=== PATIENT | female | born 2000 | race Caucasian/White ===

== ENCOUNTER 2023-06-28 23:04 | Emergency (ER) | payer OTHER, SELFPAY ==
--- NOTE | 2023-06-28 23:12 | ECG_ITS ---
Test Reason : CHEST PAIN Blood Pressure : / mmHG Vent. Rate : 073 BPM Atrial Rate : 073 BPM P-R Int : 160 ms QRS Dur : 072 ms QT Int : 386 ms P-R-T Axes : 048 057 055 degrees QTc Int : 425 ms Normal sinus rhythm with sinus arrhythmia Normal ECG No previous ECGs available Referred By: Generic ED Physician Electronically Signed By:PENNY WAKEFIELD
[2023-06-28 23:23] LABS: Hematocrit 38.2 % (37.0-47.0); Hemoglobin 12.7 g/dl (12.0-16.0); Mean Corpuscular HGB Conc 33.2 g/dl (31.0-35.0); Mean Corpuscular Volume 90.3 fL (80.0-98.0); Mean Platelet Volume 8.9 fL (9.4-12.3); Platelet Count 275 X10*3/uL (160-400); Red Blood Count 4.23 X10*6/uL (4.20-5.50); Red Cell Distribution Width 13.2 % (11.0-16.0); White Blood Count 7.9 X10*3/uL (4.8-10.8)
[2023-06-28 23:40] LABS: Alanine Aminotransferase 8 U/L (0-31); Albumin Level 4.2 g/dL (3.5-5.0); Alkaline Phosphatase 68 U/L (39-117); Anion Gap 10 (12-20); Aspartate Amino Transferase 13 U/L (5-31); Bilirubin Total 0.3 mg/dL (0.0-1.0); Blood Urea Nitrogen 18 mg/dL (9-16); Calcium 8.8 mg/dL (8.4-10.2); Carbon Dioxide 24 mmol/L (22-29); Chloride 107 mmol/L (96-108); Estimated Glomerular Filt Rate > 60; Glucose Random 120 mg/dL (60-115); Potassium 3.4 mmol/L (3.3-5.1); Sodium 138 mmol/L (135-145); Total Protein 7.3 g/dL (6.5-8.0)
[2023-06-28 23:48] LABS: Troponin-I High Sensitivity < 2.7 ng/L (<3.5-17.0)
[2023-06-28 23:51] VITALS: BP 119/73; PULSE 92; RESP 16; TEMP 36.7; O2SAT 98; BMI 27.4
--- NOTE | 2023-06-29 01:16 | ED.CHESTPAIN ---
HPI - Chest Pain General Chief Complaint: Chest Pain Stated Complaint: Chest Pain/ Heart Palpitation/ Finger numbness Time Seen by Provider: 06/29/23 01:16 Source: patient, RN notes reviewed and old records reviewed Mode of arrival: ambulatory History of Present Illness HPI narrative: 22-year-old female presents for evaluation of left-sided chest pain. patient reports that she has a known history of a ventricular septal defect that was diagnosed when she was 9 she has not followed up since sinus she has not had any issues she reports that she has had worsening pain over the last month or so. She has intermittent palpitations that seem to be worse at night and worse when she lies on her left side she is on oral contraception patient reports a family history of coronary artery disease she has no other medical history outside of the VSD currently she does not have any palpitations or chest pain her symptoms worsened at 10:00 p.m. today prompting her to present to the ER tonight Related Data Allergies Allergy/AdvReac Type Severity Reaction Status Date / Time No Known Allergies Allergy Verified 06/29/23 01:28 Review of Systems Constitutional: Constitutional: Denies chills and Denies fever(s) Cardiovascular: Cardiovascular: Reports chest pain, Reports rapid heart rate and Denies dyspnea Respiratory: Respiratory: Denies cough, Reports pain on inspiration and Denies dyspnea Gastrointestinal: Gastrointestinal: Denies abdominal pain, Denies nausea and Denies vomiting Musculoskeletal: Musculoskeletal: Denies back pain PMFSH Social History Social History Alcohol intake: never Smoked in Last 30 Days: No Use of substances other than those prescribed or required for medical reasons: No Advance Directives: No Advance Directives Information Provided: No Patient : No Physical Exam Vital Signs: Vital Signs: Last Vital Signs Temp 98.0 F 06/28/23 23:51 Pulse 92 06/28/23 23:51 Resp 16 06/28/23 23:51 BP 119/73 06/28/23 23:51 Pulse Ox 98 06/28/23 23:51 O2 Del Method Room Air 06/28/23 23:51 BMI result Body Mass Index 27.4 Const: General: healthy appearing, comfortable, no acute distress, alert and awake Nutritional Appearance: well nourished Orientation/consciousness: patient oriented x3 HEENT: Head: Yes normocephalic and Yes atraumatic Eyes: Eyelids: Yes eyelids normal Conjunctivae: conjunctivae normal Sclerae: sclerae normal Corneas: corneas normal Pupils: Equal, round and reactive pupils present EOM: EOMs intact bilaterally Neck: Neck: Yes full ROM Resp: Effort & Inspection: normal respiratory effort, able to speak in complete sentences and not labored Cardio: Rate: regular rate Rhythm: regular rhythm Heart sounds: Murmur heart sound present Skin: General skin exam: elasticity normal Neuro: General: patient oriented x3 Cranial nerves: Yes Equal, round and reactive pupils present and Yes Bilaterally intact EOM present Cognition (Neuro): normal cognition Medical Decision Making Medical Decision Making [facility] Narrative: 22-year-old female with past medical history significant for a VSD presents for evaluation of chest pain. Patient's pain is less likely to be ACS as she is young without any risk factors outside of family history. Initial troponin was negative. EKG is nonischemic. She cannot be ruled out for PE through PERC criteria as she is on hormonal therapy. Will get a D-dimer to rule this out although she is not hypoxic or tachypneic. The patient can be referred to Cardiology for evaluation and management of her known VSD Differential Diagnosis Differential Diagnoses: The differential diagnosis associated with the presentation includes chest pain Palpitations Anxiety GERD ACS PE Lab Data [facility] Lab Attestation statement: I reviewed the patient's lab results. no leukocytosis or anemia, normal platelet count. No significant electrolyte abnormalities. BUN is slightly elevated to 18 1 normal creatinine 0.79. Glucose elevated to 120 but is random. Troponin undetectable at less than 2.7 06/28/23 23:18 06/28/23 23:18 Labs: Lab Results 06/28/23 06/28/23 06/28/23 Range/Units 23:18 23:18 23:18 WBC 7.9 (4.8-10.8) X10*3/uL RBC 4.23 (4.20-5.50) X10*6/uL Hgb 12.7 (12.0-16.0) g/dl Hct 38.2 (37.0-47.0) % MCV 90.3 (80.0-98.0) fL MCH 30.0 (27.0-33.0) pg MCHC 33.2 (31.0-35.0) g/dl RDW 13.2 (11.0-16.0) % Plt Count 275 (160-400) X10*3/uL MPV 8.9 L (9.4-12.3) fL Absolute Nucleated RBC 0.000 (0.0-0.012) X10*3/uL Nucleated RBC % (auto) 0.0 (0.0-0.2) /100WBC D-Dimer High Sensitivty NG/ML Sodium 138 (135-145) mmol/L Potassium 3.4 (3.3-5.1) mmol/L Chloride 107 (96-108) mmol/L Carbon Dioxide 24 (22-29) mmol/L Anion Gap 10 L (12-20) BUN 18 H (9-16) mg/dL Creatinine 0.79 (0.5-1.4) mg/dL Estim Creat Clear Calc TNP Estimated GFR > 60 Random Glucose 120 H (60-115) mg/dL Calcium 8.8 (8.4-10.2) mg/dL Total Bilirubin 0.3 (0.0-1.0) mg/dL AST 13 (5-31) U/L ALT 8 (0-31) U/L Alkaline Phosphatase 68 (39-117) U/L Troponin I High Sens < 2.7 (<3.5-17.0) ng/L Total Protein 7.3 (6.5-8.0) g/dL Albumin 4.2 (3.5-5.0) g/dL 06/29/23 06/29/23 Range/Units 01:46 01:46 WBC (4.8-10.8) X10*3/uL RBC (4.20-5.50) X10*6/uL Hgb (12.0-16.0) g/dl Hct (37.0-47.0) % MCV (80.0-98.0) fL MCH (27.0-33.0) pg MCHC (31.0-35.0) g/dl RDW (11.0-16.0) % Plt Count (160-400) X10*3/uL MPV (9.4-12.3) fL Absolute Nucleated RBC (0.0-0.012) X10*3/uL Nucleated RBC % (auto) (0.0-0.2) /100WBC D-Dimer High Sensitivty < 150 NG/ML Sodium (135-145) mmol/L Potassium (3.3-5.1) mmol/L Chloride (96-108) mmol/L Carbon Dioxide (22-29) mmol/L Anion Gap (12-20) BUN (9-16) mg/dL Creatinine (0.5-1.4) mg/dL Estim Creat Clear Calc Estimated GFR Random Glucose (60-115) mg/dL Calcium (8.4-10.2) mg/dL Total Bilirubin (0.0-1.0) mg/dL AST (5-31) U/L ALT (0-31) U/L Alkaline Phosphatase (39-117) U/L Troponin I High Sens < 2.7 (<3.5-17.0) ng/L Total Protein (6.5-8.0) g/dL Albumin (3.5-5.0) g/dL Independent Interpretation I performed an independent interpretation of an: EKG Interpretation: normal sinus rhythm with a rate of 73 beats per minute. No ectopy, no ischemic changes Discharge Plan Discharge Clinical Impression: Chest pain, Heart palpitations Patient Disposition: Home, Self-Care Instructions: Chest Pain (ED) Additional Instructions: your workup in the emergency department today was reassuring. This includes your blood work, EKG and repeat blood work given your known ventricular septal defect, you may follow-up with Cardiology by calling the offices of Dr. Barrera you may benefit from an updated echocardiogram Referrals: Edward Barrera MD [Physician] - (palpitations, known VSD)
[2023-06-29 02:20] LABS: Troponin-I High Sensitivity < 2.7 ng/L (<3.5-17.0)
[2023-06-29 02:32] LABS: D Dimer High Sensitivity < 150 NG/ML
== END 2023-06-29 02:40 | disposition home or self-care (01) ==
PROVIDERS: Physician Assistant; Emergency Provider Emergency Medicine
DX: R07.9 Chest pain, unspecified (principal); R00.2 Palpitations
CPT/HCPCS: 36415; 80053; 84484; 85027; 85379; 93005; 99284

== ENCOUNTER 2023-12-12 09:50 | Outpatient (REF) | payer OTHER, SELFPAY ==
[2023-12-12 11:09] LABS: Hematocrit 40.7 % (37.0-47.0); Mean Corpuscular HGB Conc 34.4 g/dl (31.0-35.0); Mean Corpuscular Hemoglobin 31.3 pg (27.0-33.0); Mean Corpuscular Volume 91.1 fL (80.0-98.0); Platelet Count 296 X10*3/uL (160-400); Red Blood Count 4.47 X10*6/uL (4.20-5.50); Red Cell Distribution Width 12.7 % (11.0-16.0); White Blood Count 6.1 X10*3/uL (4.8-10.8)
[2023-12-12 12:58] LABS: Anion Gap 13 (12-20); Blood Urea Nitrogen 13 mg/dL (9-16); Calcium 9.8 mg/dL (8.4-10.2); Carbon Dioxide 25 mmol/L (22-29); Chloride 106 mmol/L (96-108); Estimated Glomerular Filt Rate > 60; Glucose Random 86 mg/dL (60-115); Magnesium 2.3 mg/dL (1.6-2.6); Potassium 4.2 mmol/L (3.3-5.1); Sodium 140 mmol/L (135-145)
[2023-12-12 13:05] LABS: TSH reflex Free T4 0.91 uIU/mL (0.32-4.0)
== END 2023-12-12 09:51 | disposition home or self-care (01) ==
LOC: HO.LAB 09:50
PROVIDERS: Visit Provider Internal Medicine Cardiovascular Disease
DX: R00.2 Palpitations (principal); Q21.0 Ventricular septal defect; Q25.42 Hypoplasia of aorta
CPT/HCPCS: 36415; 80048; 83735; 84443; 85027; 93005

== ENCOUNTER 2023-12-12 09:50 | Outpatient (AMB) | payer OTHER, SELFPAY ==
--- NOTE | 2023-12-12 09:51 | A.OFFVIS_ITS ---
Intake Vital Signs 12/12/23 09:53 Height 5 ft 2 in Weight 138 lb 14.259 oz BMI 25.4 BP 120/72 Blood Pressure Location Lt brachial Position Sitting Pulse 78 Intake Visit Reasons: [employer]ER/ PCP pending/ chest pain/palps/ ed 08 Intake Note: New patient born with a hole in her heart has hurt murmur last echo with when she was 7 recently having palpitations and chest pain at times Tax Manager Public Required: No Allergies No Known Allergies Allergy (Verified 06/29/23 01:28) Medication List - Last Reconciled 12/12/23 by Warren Dillard MD drospirenone (contraceptive) (Slynd) 1 tab PO DAILY HPI HPI Comments History of Present Illness Details Thank you for referring Darling in cardiology consultation today for symptoms of palpitations. 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 She is diagnosed with a VSD when she was very young and at age of 7 was told that VSD would potentially close by itself and was had no follow-up since then. However seems like the VSD was small at that time and hemodynamically not significant. Since then she has not had any further evaluation. As she got concerned as in summer she started having symptoms of palpitations. She feels this mostly at rest at nighttime when she is trying to relax and she would feel skipped heartbeats and or flutter in the chest. She is tried to take her own pulse but this is usually regular at that point in time. She since then had does episode for 2 months and then subsided. However for the last few months she has been having symptoms more frequently and happens on a daily basis. Symptoms are bothersome to her. Occasionally associated with chest pain. She exercises on a regular basis and has no exertional chest pain or shortness of breath. No symptoms of orthopnea, PND, leg edema. No prolonged palpitations or lightheadedness or syncope. She has not had any recent changes in her health. She denies any recent increased stress in her life. She denies any orse-vex-ndbfllr medications. Drinks 1-2 cups of caffeine on a daily basis and occasional alcohol but there is no correlation to her symptoms. [facility] Medical History (Updated 12/12/23 @ 10:27 by Warren Dillard MD) VSD (ventricular septal defect and aortic arch hypoplasia Family History (Updated 12/12/23 @ 10:02 by Judie Queen Imelda) Father No problems noted. Mother No problems noted. Maternal Grandmother HTN (hypertension) Social History (Updated 12/12/23 @ 10:03 by NELL Pickett) Alcohol intake: never Patient Tobacco Use Status: Never used Tobacco Review of Systems Const Denies chills, Denies daytime sleepiness, Denies fatigue, Denies fever(s), Denies frequent falls, Denies poor appetite, Denies snoring, Denies stops breathing during sleep, Denies weakness, Denies weight gain and Denies weight loss Eyes Denies loss of vision ENT Denies dizziness and Denies hearing loss Card Denies chest pain, Denies claudication, Denies leg edema, Denies lighthea dedness, Denies palpitations, Denies dyspnea, Denies dyspnea on exertion and Denies orthopnea Resp Denies cough, Denies excessive phlegm production, Denies dyspnea, Denies dyspnea on exertion, Denies snoring and Denies wheezing GI Denies abdominal pain, Denies hematochezia, Denies change in bowel habits, Denies nausea and Denies vomiting Denies urinary frequency and Denies dysuria Musc Denies arthralgias, Denies muscle weakness, Denies numbness and Denies other (frequent falls) Skin/Breast Denies nail changes and Denies rash Neuro Denies Abnormal speech present, Denies dizziness, Denies frequent falls, Denies loss of vision, Denies memory loss, Denies numbness and Denies weakness Psych Denies depression and Denies memory loss Endo Denies fatigue and Denies palpitations Domingo/Lymph Reports easy bruising and Reports other (anemia) Aller/Immun Denies wheezing Physical Exam Vital Signs: Last Vital Signs Pulse 78 12/12/23 09:53 BP 120/72 12/12/23 09:53 BMI result Body Mass Index 25.4 Const General: cooperative, comfortable, well developed, alert, awake and Physically active Nutritional Appearance: average body habitus Orientation/consciousness: patient oriented x3 Limitations: no limitations HEENT Head: Yes normocephalic and Yes atraumatic Neck Neck: Yes trachea midline, Yes supple and Yes no JVD Resp Effort & Inspection: normal respiratory effort Auscultation: clear to auscultation bilaterally Cardio Jugular venous distension: no JVD Palpation: normal PMI Rate: regular rate Rhythm: regular rhythm Heart sounds: S1 normal heart sound present, S2 normal heart sound present, no click, no gallops and Murmur heart sound present systolic holo, harsh and at the left sternal border GI Auscultation: normal bowel sounds Skin General skin exam: no rashes or lesions noted Neuro General: patient oriented x3 and no focal motor deficits Speech: No Abnormal speech present Extrem General: Yes no clubbing, cyanosis or edema Psych Appearance: grossly normal Office Procedures EKG Details: EKG shows normal sinus rhythm with sinus arrhythmia otherwise normal EKG [id number], Complete Assessment & Plan Assessment & Plan (1) Heart palpitations: Code(s): R00.2 - Palpitations Plan: Patient with symptoms of palpitation which are more bothersome and more persistent and present consistently in the past few months. From history appear to be isolated PVCs or may be PACs. This needs to be diagnosed. Will suggest a 3 day Holter monitor to further assess for the symptoms as well as for frequency of her PVCs if present.. Also suggest echocardiogram to evaluate for structure of the heart. Further treatment based on the findings. If she has very frequent PVCs they may need treatment with beta-andrés therapy. Discussed about stress mitigation strategies. Avoidance of stimulants was discussed. No pharmacotherapy is being offered at this point in time. 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 Will suggest an echocardiogram to assess for the same and to assess for biventricular function. This was discussed with her. If the VSD is clinically confirmed would consider SBE prophylaxis to prevent endocarditis at the site of VSD. This was discussed with her. She understands and agrees. Will follow up in the clinic in 6 weeks time, sooner p.r.n.. 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
[2023-12-12 09:53] VITALS: BP 120/72; PULSE 78; BMI 25.4
== END 2023-12-12 10:27 | disposition home or self-care (01) ==
PROVIDERS: Visit Provider Internal Medicine Cardiovascular Disease
DX: R00.2 Palpitations (principal); Q21.0 Ventricular septal defect; Q25.42 Hypoplasia of aorta
CPT/HCPCS: 93010; 99204

== ENCOUNTER → 2023-12-29 08:13 | Outpatient (REF) | payer OTHER, SELFPAY ==
--- NOTE | 2023-12-29 08:17 | HM_ITS ---
* Total monitoring time 3 days. * Underlying rhythm is sinus with an average rate of 84/Min. * Rare ventricular ectopy. Evidence of bigeminy. No runs noted. * No significant pauses or AV blocks. * Palpitations in patient diary correlates with sinus rhythm, PVCs. MTDD
--- NOTE | 2023-12-29 08:17 | CA_ITS ---
Transthoracic Echocardiogram Amended Patient (Last, First, Middle): Darling Wagner, Gender: Female Date of : 2000 Age: 23 Procedure Date: 12/29/2023 Procedure Type: Transthoracic Echocardiogram Location: OP Height: 157.48 cm Weight: 62.6 kg BSA: 1.63 m2 Heart Rate: 79 bpm BP: 120 / 60 mmHg Electric Clock Mechanic: FLAQUITO Referring MD: Warren Dillard MD Symptoms: Q21.0 VSD Q25.42 HYPOPLASIA AORTA Study Quality: Difficult parasternal short axis/narrow ribs ECG Rhythm: Sinus Conclusions: - The left ventricular systolic function is normal. The calculated ejection fraction is 65% by biplane method. - Small ventricular septal defect noted, ?membranous vs sub arterial type. - No obvious valvular pathology seen on this study. Findings Left Ventricle Normal left ventricular cavity size. There is normal left ventricular wall thickness. The left ventricular systolic function is normal. The calculated ejection fraction is 65% by biplane method. There is no evidence of regional wall motion abnormalities. Diastolic function is normal for age. LV peak GLS -20%. Small ventricular septal defect noted, ?membranous vs sub-arterial type. Right Ventricle Normal right ventricular cavity size and systolic function. Atria Both atria are normal in size. Aortic Valve The aortic valve was not well visualized. There is no aortic valve stenosis. There is no aortic valve regurgitation. Mitral Valve The mitral valve appears normal. There is no mitral valve regurgitation. There is no mitral valve stenosis. Pulmonic Valve The pulmonic valve is likely normal. Tricuspid Valve Normal tricuspid valve structure. There is trace tricuspid valve regurgitation. There is no evidence of pulmonary hypertension. Great Vessels The aorta was not well visualized. The aortic annulus is normal in size. Venous The inferior vena cava is normal in size and collapses greater than 50% with inspiration. Pericardium/Pleural There is no evidence of pericardial effusion. Prior Study Comparison No prior study available for comparison. Recommendations, Care & Conclusions No obvious valvular pathology seen on this study. Measurements 2D Linear Measurements IVSd: 0.73 0.6-0.9/0.6-1.0 cm LVIDd: 4.31 3.9-5.3/4.2-5.9 cm LVIDd Index: 2.64 2.4-3.2/2.2-3.1 cm/m2 LVIDs: 2.80 2.0-3.6 cm LVPWd: 0.53 0.7-1.1 cm LA Diam: 3.10 2.7-3.8/3.0-4.0 cm LAIDs Index: 1.90 1.5-2.3 cm/m2 LV Mass: 96.65 67-162/88-224 g LV Mass Index: 59.29 43-95/49-115 g/m2 LVOT Diam: 2.20 3.0+(-)1.3 cm 2D Volumes LA Vol: 20.60 2D Systolic Function EF 4C: 67.30 >55% EF 2C: 62.60 >55% EF BiP: 65.00 >55% Mitral Valve MV Pk E: 0.88 MV PK A: 0.57 MV Decel Time: 154.00 E/A: 1.60 E'Lateral: 16.00 E'Medial: 11.50 E/E' Med: 7.70 E/E' Lat: 5.50 PHT: 45.00 MVA PHT: 4.89 Decel [place]: 5.72 Aortic Valve AoV Pk [place]: 1.17 AoV Pk Grad: 5.00 LVOT LVOT Pk [place]: 1.06 LVOT Mn [place]: 0.77 LVOT VTI: 0.22 LVOT Pk Grad: 4.00 LVOT Mn Grad: 3.00 LVOT Diam: 2.20 LVOT Area: 3.80 Diastolic Function MV Pk E: 0.88 MV Pk A: 0.57 E/A: 1.60 E'Medial: 11.50 E/E' Med: 7.70 E' Laterial: 16.00 E/E' Lat: 5.50 Right Ventricle TAPSE (mm): 18.70 TVS' [place]: 12.70 Tricuspid Valve TR Pk [place]: 1.71 TR Pk Grad: 12.00 RA Press: 3.00 RVSP: 15.00 Great Vessels Aorta Sinus of Valsalva: 2.70 2.0-3.5 cm Ao Asc: 2.40 2.1-3.4 cm Ao Arch: 2.10 Ao Desc: 1.10 Pulmonary Veins Pulm Vein S/D 0.90 Pulmonary Valve PV Pk [place]: 1.07 Peak PV Grad: 5.00 Updated in Other Vendor System with Status of Final Dariel Schneider MD electronically signed on 12/31/2023 6:22:30 AM with status of Final
== END ==
LOC: HO.CARD 08:13
PROVIDERS: Visit Provider Internal Medicine Cardiovascular Disease
DX: Q21.0 Ventricular septal defect (principal); Q25.42 Hypoplasia of aorta; R00.2 Palpitations
CPT/HCPCS: 93242; 93306; 93356

== ENCOUNTER → 2023-12-29 08:17 | Outpatient (BNV) | payer OTHER, SELFPAY | PROVIDERS: Visit Provider Internal Medicine | DX: I49.3 Ventricular premature depolarization (principal) | CPT/HCPCS: 93244; 93306 ==

== ENCOUNTER 2024-01-23 09:26 | Outpatient (AMB) | payer OTHER, SELFPAY ==
[2024-01-23 09:29] VITALS: BP 110/72; PULSE 89; BMI 25.6
--- NOTE | 2024-01-23 09:29 | MHC.OFFVIS ---
Intake Vital Signs 01/23/24 09:29 Height 5 ft 2 in Weight 140 lb 3.424 oz BMI 25.6 BP 110/72 Blood Pressure Location Lt brachial Position Sitting Pulse 89 Pulse Source Pulse Oximeter Intake Visit Reasons: 6 wk s/p echo/ holter labs NS Intake Note: pt its here for echo/holter and labs/ pt states that she its doing fine. Bit Grinder Required: No Accompanied by: Self / Same As Patient Allergies No Known Allergies Allergy (Verified 06/29/23 01:28) Medication List - Last Reconciled 01/23/24 by Claudia Jorge NP-C drospirenone (contraceptive) (Slynd) 1 tab PO DAILY HPI 6 wk s/p echo/ holter labs NS HPI Details Darling is a 23-year-old female with past medical history of a VSD who reported heart palpitations and underwent a Holter monitor and echocardiogram. Today she reports that she continues to get heart palpitations, mostly in the evenings in when she is trying to sleep. She can feel her heart skipping. At times this is mildly uncomfortable for her. She has no associated symptoms of lightheadedness, presyncope, syncope, falls, shortness of breath. She does not feel heart palpitations during the day. No chest discomfort brought on by physical activity. No PND, orthopnea or edema. She is in school for pharmacist. She does report high stress levels. She drinks 1-2 caffeinated beverages a day. [facility] Medical History VSD (ventricular septal defect and aortic arch hypoplasia Family History Father No problems noted. Mother No problems noted. Maternal Grandmother HTN (hypertension) Social History Alcohol intake: never Patient Tobacco Use Status: Never used Tobacco Review of Systems Const All systems reviewed & are unremarkable except as noted in HPI and below Denies chills, Denies fatigue, Denies fever(s), Denies frequent falls, Denies weakness, Denies weight gain and Denies weight loss ENT Denies dizziness Card Details: palpitations Denies chest pain, Denies leg edema, Denies lightheadedness, Denies palpitations, Denies dyspnea and Denies dyspnea on exertion Resp Denies cough, Denies dyspnea and Denies dyspnea on exertion GI Denies hematochezia Musc Denies abnormal gait, Denies muscle weakness, Denies numbness, Denies radiating pain into limb and Denies tingling Neuro Denies abnormal gait, Denies dizziness, Denies frequent falls, Denies numbness, Denies tingling and Denies weakness Endo Denies fatigue and Denies palpitations Physical Exam Vital Signs: Last Vital Signs Pulse 89 01/23/24 09:29 BP 110/72 01/23/24 09:29 BMI result Body Mass Index 25.6 Const General: cooperative, healthy appearing, comfortable and no acute distress Orientation/consciousness: patient oriented x3 HEENT Head: Yes normal to inspection Chest Chest palpation & inspection: normal inspection of the chest Resp Effort & Inspection: normal respiratory effort Auscultation: clear to auscultation bilaterally, no crackles, no rales, no rhonchi and no wheezes Cardio Jugular venous distension: no JVD Rate: regular rate Rhythm: regular rhythm Heart sounds: S1 normal heart sound present, S2 normal heart sound present, no gallops, no murmurs and no rubs Peripheral pulses: Peripheral pulses 2+ throughout GI Inspection: Yes normal to inspection Neuro General: patient oriented x3 Extrem General: Yes normal to inspection, No no pedal edema and No calf tenderness Psych Appearance: grossly normal Mental Status: mental status grossly normal Speech and movement: Normal speech and movement present Assessment & Plan Assessment & Plan (1) Palpitations: Code(s): R00.2 - Palpitations Plan: Reports of heart palpitations that occur in the evenings mostly and feel like skipping in her chest. Holter monitor done on 12/29/2023 for 3 days shows sinus rhythm with average heart rate 84, rare ectopy, bigeminy, PVCs. Symptoms correlate with sinus rhythm with PVCs. Echocardiogram done 12/29/2023 showed EF 65%, small VSD, no valve abnormalities and no regional wall motion abnormalities. Diagnosis of PVCs reviewed with her in detail. Informed that they are benign in the setting of normal EF. Reviewed caffeine reduction, stress reduction activities, increasing physical activity, getting adequate rest and maintaining good hydration. No need for medical management at this time. Instructed to call if she develops any lightheadedness, presyncope, syncope with heart palpitations. Emergency care if ever needed for symptoms. Copy of Holter and echocardiogram results given to her. Cardiology follow-up as needed. 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 She has not had cardiology follow-up since that time. Echocardiogram as above still showing small VSD. Asymptomatic. Plan Time spent on chart review, interview, assessment, documentation Coding Level of Care Code Est Pt Level 3 (14140) Diagnoses Palpitations R00.2 VSD (ventricular septal defect and aortic arch hypoplasia Q21.0; Q25.42 Time Spent (min) 24
== END 2024-01-23 10:00 | disposition home or self-care (01) ==
PROVIDERS: Visit Provider Nurse Practitioner Family
DX: R00.2 Palpitations (principal); Q21.0 Ventricular septal defect; Q25.42 Hypoplasia of aorta
CPT/HCPCS: 99213

== ENCOUNTER → 2024-01-23 09:26 | Outpatient (BNVA) | payer OTHER, SELFPAY | PROVIDERS: Visit Provider Nurse Practitioner Family ==